=== PATIENT | male | born 1975 | race Caucasian/White ===

== ENCOUNTER 2020-08-20 04:33 | Emergency (ER) | payer OTHER ==
[~2020-08-20] VITALS: Ht 180.3 cm; Wt 90.7 kg
--- NOTE | 2020-08-20 04:41 | NUR ---
BIBSELF FROM HOME WITH C/C OF PAIN AND SWELLING OF RIGHT ELBOW (+) LACERATION NON BLEEDING DUE TO BROKEN GLASS THAT FALL TO HIS ELBOW, V/S CHECKED AND RECORDED, WITH TEMP 101.5 BREATHING EVEN AND UNLABORED, HOOK TO MONITOR AND SPOX WILL CONT TO MONITOR
--- NOTE | 2020-08-20 04:43 | NUR ---
DR BOJORQUEZ AT BEDSIDE
--- NOTE | 2020-08-20 04:55 | NUR ---
RADIOLIGIST AT BEDSIDE
[2020-08-20] MEDS ORDERED: KETOROLAC TROMETHAMINE INJ 60 MG/2 ML VIAL IM ONE ×2 (05:37→06:00)
[2020-08-20] MEDS ORDERED: TDAP [DIPH/PERTUSSIS/TET] 0.5 ML VIAL IM ONE ×2 (05:42→06:00)
[2020-08-20] MEDS ORDERED: HYDR-3980 PO (05:42)
[2020-08-20] MEDS ORDERED: IBUP-1955 PO (05:42)
[2020-08-20] MEDS ORDERED: CEPH500T PO (05:42)
[2020-08-20] MEDS ORDERED: SULF1TAB48 PO (05:42)
--- NOTE | 2020-08-20 05:57 | NUR ---
Patient discharged to home in stable condition. Written and verbal after care instructions given. Patient verbalizes understanding of instruction.IV removed. Catheter intact and site benign. Pressure and 4x4 applied to site. No bleeding noted.Mr. Greer is ambulatory with a steady gait
[2020-08-20 05:58] VITALS: BP 124/78
== END 2020-08-20 05:59 | disposition home or self-care (01) ==
LOC: ER 04:46
DX: L03.113 Cellulitis of right upper limb (principal); W25.XXXA Contact with sharp glass, initial encounter; Y93.89 Activity, other specified; Y92.89 Other specified places as the place of occurrence of the external cause; Y99.8 Other external cause status
CPT/HCPCS: 73080; 90471; 90715; 96372; 99284; J1885

== ENCOUNTER 2020-12-07 21:33 | Emergency (ER) | payer OTHER ==
[~2020-12-07] VITALS: Ht 180.3 cm; Wt 88.5 kg
[~2020-12-07 21:33] MED LIST: CEPH500T PO; HYDR-3980 PO; IBUP-1955 PO; SULF1TAB48 PO
[2020-12-07 22:20] VITALS: BP 146/96
[2020-12-07] MEDS ORDERED: IBUPROFEN 400 MG TABLET ONE (22:39)
[2020-12-07] MEDS ORDERED: IBUPROFEN 400 MG TABLET PO ONE (23:00)
[2020-12-07] MEDS ORDERED: IBUP-1957 PO (23:30)
== END 2020-12-08 00:09 | disposition home or self-care (01) ==
LOC: ER 21:42
DX: S33.5XXA Sprain of ligaments of lumbar spine, initial encounter (principal); Z79.899 Other long term (current) drug therapy; W18.39XA Other fall on same level, initial encounter; Y93.89 Activity, other specified; Y92.89 Other specified places as the place of occurrence of the external cause; Y99.8 Other external cause status
CPT/HCPCS: 72110-TC

== ENCOUNTER 2021-05-09 04:01 | Emergency (ER) | payer OTHER ==
[~2021-05-09] VITALS: Ht 180.3 cm; Wt 90.7 kg
[~2021-05-09 04:01] MED LIST changes: +IBUP-1957 PO
--- NOTE | 2021-05-09 05:00 | NUR ---
PT BIBSELF C/O RT FOOT PAIN S/P "DROPPING A SAW ON IT" X 1DAY AGO. PT AAOX 4 BREATHING EVENLY AND UNLABORED. PT AMBULATORY WITH A MINOR LIMP. UPON ASSESSMENT, VARIOUS ULCERS ON RT LEG AND RT INDEX FINGER. PT ATTACHED TO MONITOR AND POX. PT GIVEN BLANKET AND CALL LIGHT WITHIN REACH
[2021-05-09] MEDS ORDERED: VANCOMYCIN 1 GM VIAL ONE (05:28)
[2021-05-09] MEDS ORDERED: VANCOMYCIN 1 GM in IV D5W 250 ML IV ONE (05:30)
[2021-05-09 05:53] LABS: BASOPHILS # (AUTO) 0.1 K/uL (0.0-0.2); BASOPHILS % (AUTO) 0.8 % (0.0-2.0); EOSINOPHILS % (AUTO) 2.5 % (0.0-6.0); HEMATOCRIT 40 % (39-51); HEMOGLOBIN 13.3 g/dL (13.5-17.5); LYMPHOCYTES # (AUTO) 2.2 K/uL (0.8-4.8); MEAN CORPUSCULAR HGB CONC 34 g/dl (31.0-36.0); MEAN CORPUSCULAR VOLUME 93 fL (80-96); MONOCYTES # (AUTO) 0.7 K/uL (0.1-1.30); MONOCYTES % (AUTO) 9.2 % (2.0-12.0); NEUTROPHILS # (AUTO) 4.5 K/uL (1.8-8.9); NEUTROPHILS % (AUTO) 58.5 % (43.0-81.0); PLATELET COUNT (AUTO) 316 K/uL (150-450); RED BLOOD CELL COUNT(AUTO) 4.28 MIL/uL (4.5-6.0); WHITE BLOOD COUNT (AUTO) 7.7 K/uL (4.3-11.0)
[2021-05-09 06:15] LABS: CALCIUM, SERUM 9.1 mg/dL (8.5-10.1); POTASSIUM 3.8 mmol/L (3.5-5.1)
[2021-05-09 06:21] LABS: ALBUMIN 3.4 g/dL (3.4-5.0); BILIRUBIN,DIRECT 0.1 mg/dL (0.0-0.2); BILIRUBIN,TOTAL 0.2 mg/dL (0.2-1.0); TOTAL PROTEIN, SERUM 7.7 g/dL (6.4-8.2)
[2021-05-09] MEDS ORDERED: IBUP-1955 PO (07:08)
[2021-05-09] MEDS ORDERED: SULF1TAB48 PO (07:08)
[2021-05-09] MEDS ORDERED: CEPH500T PO (07:08)
--- NOTE | 2021-05-09 07:29 | NUR ---
Patient discharged to home in stable condition. Written and verbal after care instructions given. Patient verbalizes understanding of instruction. IV removed. Catheter intact and site benign. Pressure and 4x4 applied to site. No bleeding noted. pt ambulatory with a steady gait
[2021-05-09 07:35] VITALS: BP 154/96
== END 2021-05-09 07:29 | disposition home or self-care (01) ==
LOC: ER 04:07
DX: S90.811A Abrasion, right foot, initial encounter (principal); L03.115 Cellulitis of right lower limb; Z20.822 Contact with and (suspected) exposure to COVID-19; W20.8XXA Other cause of strike by thrown, projected or falling object, initial encounter; Y93.89 Activity, other specified; Y92.89 Other specified places as the place of occurrence of the external cause; Y99.8 Other external cause status
CPT/HCPCS: 36415; 73630; 80048; 80076; 83605; 85025; 87040 ×2; 87426; 96365; 99284; C9803; J3370

== ENCOUNTER 2024-07-06 09:42 | Emergency (ER) | payer MEDICAID, OTHER ==
[~2024-07-06] VITALS: Ht 180.3 cm; Wt 90.7 kg
[2024-07-06 09:45] VITALS: TEMP 98.3
[2024-07-06] MEDS ORDERED: CEPH-570 PO (09:59)
[2024-07-06] MEDS ORDERED: DOXY100C2 PO (09:59)
[2024-07-06] MEDS ORDERED: TDAP [DIPH/PERTUSSIS/TET] 0.5 ML VIAL IM ONE (10:14)
[2024-07-06] MEDS: TDAP [DIPH/PERTUSSIS/TET] 0.5 ML VIAL IM ONE (10:22)
[2024-07-06 10:40] VITALS: BP 142/78; O2SAT 99
== END 2024-07-06 10:42 | disposition home or self-care (01) ==
LOC: ER 09:48
DX: L03.116 Cellulitis of left lower limb (principal); Z79.1 Long term (current) use of non-steroidal anti-inflammatories (NSAID); Z86.69 Personal history of other diseases of the nervous system and sense organs; Z87.39 Personal history of other diseases of the musculoskeletal system and connective tissue
CPT/HCPCS: 90715